=== PATIENT | female | born 1965 | race Two or more races ===

== ENCOUNTER 2023-06-04 08:06 | Inpatient (IN) | payer OTHER ==
[~2023-06-04] VITALS: Ht 165.1 cm; Wt 276.7 kg
[2023-06-04] MEDS ORDERED: AMLODIPINE-OLM1 EAC2 (08:21)
[2023-06-04] MEDS ORDERED: PEPCID AC10 MG (08:21)
[2023-06-04] MEDS ORDERED: TRAZODONE HCL150 MG PO (08:21)
[2023-06-04] MEDS ORDERED: TRAZODONE HCL50 MG PO (08:21)
[2023-06-04] MEDS ORDERED: LOSARTAN-HCTZ1 EAC2 PO (08:22)
[2023-06-04] MEDS ORDERED: LIPITOR40 MG PO (08:22)
[2023-06-04] MEDS ORDERED: 0.9 % SODIUM CHLORIDE 1,000 ML IV STA (08:54)
[2023-06-04] MEDS ORDERED: FAMOtidine 10 MG/ML (4ML VIAL) IV STA (08:55)
[2023-06-04 09:52] LABS: HEMATOCRIT 37.6 % (36.0-45.00); MEAN CELL VOLUME 87.1 fL (80.00-100.00); MEAN CORPUSCULAR HEMOGLOBIN 30.2 pg (27.00-32.0); MEAN CORPUSCULAR HGB CONC 34.6 g/dl (32.0-36.0); PLATELET COUNT 269 K/uL (150-450); RED BLOOD COUNT 4.32 M/uL (4.00-6.00); RED CELL DISTRIBUTION WIDTH 13.6 % (11.5-14.5)
[2023-06-04 10:09] LABS: ALBUMIN 3.5 gm/dL (3.4-5.0); BILIRUBIN TOTAL 0.37 mg/dL (0.3-1.2); BILIRUBIN,CONJUGATED 0.12 mg/dL (0.0-0.2); BILIRUBIN,UNCONJUGATED 0.25 mg/dL (0.0-0.6); CALCIUM 9.1 mg/dL (8.5-10.1); CREATININE SERUM 0.91 mg/dL (0.55-1.02); GFR 63.49; POTASSIUM 3.98 mEq/L (3.5-5.1); TOTAL PROTEIN 7.1 gm/dL (6.4-8.2)
[2023-06-04 10:52] LABS: PH,URINE 6.5 (5.0-8.0); URINE APPEARANCE Clear; URINE BILIRRUBIN Negative (NEGATIVE); URINE BLOOD Negative; URINE COLOR Dark Yellow; URINE GLUCOSE Negative (NEGATIVE); URINE LEUKOCYTE Small; URINE NITRATE Positive; URINE PROTEIN Trace (NEGATIVE)
[2023-06-04 11:07] LABS: URINE BACTERIA 16.3 uL (0.0-1933); URINE EPITHELIAL CELLS 14.6 uL (0.0-38.8); URINE RBC 3.1 uL (0.0-20.8); URINE WBC 152.2 uL (0.0-23.2)
[2023-06-04] MEDS ORDERED: CEFTRIAXONE SODIUM 2,000 MG in 0.9 % SODIUM CHLORIDE 100 ML IV SCH (18:25)
[2023-06-04] MEDS ORDERED: FAMOTIDINE/PF 20 MG/2 ML VIAL IV SCH (18:25)
[2023-06-04] MEDS ORDERED: ONDANSETRON HCL 4 MG in 0.9 % SODIUM CHLORIDE 50 ML IV PRN (18:30)
[2023-06-04] MEDS ORDERED: SODIUM CHLORIDE 0.45 % 1,000 ML IV SCH (18:30)
[2023-06-04 22:32] LABS: INR 0.98; PARTIAL THROMBOPLASTIN TIME 23.7 SECONDS (22.0-34.0); PROTHROMBIN TIME 10.3 SECONDS (9.0-11.5)
[2023-06-05] MEDS ORDERED: LOSARTAN POTASSIUM 50 MG TABLET PO SCH (14:57)
[2023-06-05] MEDS ORDERED: LACTOBACILLUS ACIDOPHILUS 1 CAP CAP PO SCH (17:00)
[2023-06-05] MEDS ORDERED: TRAZODONE HCL 50 MG TABLET PO SCH (21:00)
[2023-06-07 06:19] LABS: HEMATOCRIT 35.1 % (36.0-45.00); MEAN CELL VOLUME 88.5 fL (80.00-100.00); MEAN CORPUSCULAR HEMOGLOBIN 30.3 pg (27.00-32.0); MEAN CORPUSCULAR HGB CONC 34.2 g/dl (32.0-36.0); PLATELET COUNT 211 K/uL (150-450); RED BLOOD COUNT 3.96 M/uL (4.00-6.00); RED CELL DISTRIBUTION WIDTH 13.6 % (11.5-14.5)
[2023-06-07 07:09] LABS: ALBUMIN 2.9 gm/dL (3.4-5.0); BILIRUBIN TOTAL 0.73 mg/dL (0.3-1.2); CALCIUM 8.2 mg/dL (8.5-10.1); CREATININE SERUM 0.84 mg/dL (0.55-1.02); GFR 69.64; GLOBULINA 2.9 G/DL (2.4-3.5); POTASSIUM 4.18 mEq/L (3.5-5.1); TOTAL PROTEIN 5.8 gm/dL (6.4-8.2)
[2023-06-07] MEDS ORDERED: KETOROLAC TROMETHAMINE 30 MG VIAL IV PRN (12:15)
[2023-06-07] MEDS ORDERED: FAMOtidine 20 MG TABLET PO SCH (17:00)
== END 2023-06-08 17:54 | disposition home or self-care (01) | DRG 690 ==
LOC: ER 08:06 → MEDJ 18:25
PROVIDERS: General Practice; ADMIT Internal Medicine; ATTEND Internal Medicine
PROC: BW21ZZZ Computerized Tomography (CT Scan) of Abdomen and Pelvis (ICD-10-PCS; principal; 2023-06-04)
PROC: BT4JZZZ Ultrasonography of Kidneys and Bladder (ICD-10-PCS; 2023-06-05)
DX: N39.0 Urinary tract infection, site not specified (principal); D72.828 Other elevated white blood cell count; R30.0 Dysuria